=== PATIENT | female | born 2000 | race Caucasian/White ===

== ENCOUNTER 2020-05-11 13:13 | Emergency (ER) | payer BC, OTHER ==
[2020-05-11] MEDS ORDERED: ACETAMINOPHEN 325 MG TABLET ONE (14:04)
--- NOTE | 2020-05-11 14:43 | RAD REPORT ---
EXAM DESCRIPTION: Navid Single View05/11/2020 2:09 pm CLINICAL HISTORY: cough COMPARISON: none FINDINGS: The lungs appear clear of acute infiltrate. The heart is normal size IMPRESSION: No acute abnormalities displayed
--- NOTE | 2020-05-11 14:59 | EDPHYS ---
Physician Documentation [facility] Name: Gabriela Cervantes Age: 19 yrs Sex: Female : 2000 Arrival Date: 05/11/2020 Time: 13:16 Bed 23 Private MD: ED Physician Jimmy Amaya HPI: 05/11 13:47 This 19 yrs old Female presents to ER via Ambulatory with complaints of rn Breathing Difficulty, R/O COVID. 13:47 The patient has shortness of breath at rest, with light activity. Onset: The rn symptoms/episode began/occurred yesterday. Duration: The symptoms are intermittent. The patient's shortness of breath is aggravated by exertion, light activity. Severity of symptoms: At their worst the symptoms were mild in the emergency department the symptoms are unchanged. The patient has not experienced similar symptoms in the past. The patient has not recently seen a physician. Reports works at [employer], + possible exposure to COVID, present for fever/headache/cough/diarrhea/loss of taste and smell. No chronic lung problems, no smoking history. Reports feels sob but when asked to describe it she reports just "feels heavy" when trying to take deep breath. . 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 - Social history:: Smoking status: Patient denies any tobacco usage or history of. - Family history:: not pertinent. - Hospitalizations: : No recent hospitalization is reported. ROS: 13:47 Constitutional: Negative for fever, chills, and weight loss, Eyes: Negative for injury, rn pain, redness, and discharge, Neck: Negative for injury, pain, and swelling, Cardiovascular: Negative for chest pain, palpitations, and edema, Respiratory: Negative for wheezing, and pleuritic chest pain, Abdomen/GI: Negative for abdominal pain, vomiting, and constipation, Back: Negative for injury and pain, : Negative for injury, bleeding, discharge, and swelling, MS/Extremity: Negative for injury and deformity, Skin: Negative for injury, rash, and discoloration, Neuro: Negative for numbness, tingling, and seizure. Exam: 13:47 Constitutional: This is a well developed, well nourished patient who is awake, alert, rn and in no acute distress. Ambulatory to room without difficulty or assistance. Head/Face: Normocephalic, atraumatic. Cardiovascular: Regular rate and rhythm. No pulse deficits. Respiratory: Speaking full sentences. No increased work of breathing, no retractions or nasal flaring. Abdomen/GI: soft, non-tender Skin: Warm, dry MS/ Extremity: Pulses equal, no cyanosis. Neurovascular intact. Full, normal range of motion. Equal circumference. Neuro: Awake and alert, GCS 15 Vital Signs: 13:34 BP 123 / 96; Pulse 98; Resp 16 S; Temp 100.0(TE); Pulse Ox 100% on R/A; Weight 97.52 iw kg; Height 5 ft. 3 in. (160.02 cm); Pain 6/10; 13:34 Body Mass Index 38.09 (97.52 kg, 160.02 cm) iw MDM: 13:39 Patient medically screened. rn 14:57 Differential diagnosis: Bronchitis pneumonia, COVID, viral syndrome. Data reviewed: rn vital signs, nurses notes, lab test result(s), radiologic studies, plain films, and as a result, I will discharge patient. Counseling: I had a detailed discussion with the patient and/or guardian regarding: the historical points, exam findings, and any diagnostic results supporting the discharge/admit diagnosis, lab results, radiology results, the need for outpatient follow up, to return to the emergency department if symptoms worsen or persist or if there are any questions or concerns that arise at home. Special discussion: I discussed with the patient/guardian in detail that at this point there is no indication for admission to the hospital. It is understood, however, that if the symptoms persist or worsen the patient needs to return immediately for re-evaluation. Based on the history and exam findings, there is no indication for further emergent testing or inpatient evaluation. I discussed with the patient/guardian the need to see the primary care provider for further evaluation of the symptoms. ED course: CXR neg, no oxygen requirement, flu neg, will dc home with prn inhaler, decadron given here, will isolate and wait for results. . 05/11 13:45 Order name: Flu; Complete Time: 14:50 rn 05/11 13:45 Order name: COVID-19 rn 05/11 13:45 Order name: XRAY Chest (1 view); Complete Time: 14:44 rn Administered Medications: 14:20 Drug: Tylenol 650 mg Route: PO; iw Disposition: 05/11/20 14:58 Discharged to Home. Impression: Cough, Viral syndrome. - Condition is Stable. - Discharge Instructions: Cough, Adult, COVID-19. - Prescriptions for Albuterol Sulfate 90 mcg/actuation - inhale 1-2 puff by INHALATION route every 4-6 hours; 1 Inhaler. - Work release form, Medication Reconciliation Form, Thank You Letter, Antibiotic Education, Prescription Opioid Use form. - Follow up: Private Physician; When: As needed; Reason: Recheck today's complaints, Re-evaluation by your physician. - Problem is new. - Symptoms have improved. Addendum: 05/14/2020 14:18 Co-signature as Attending Physician, Jimmy Amaya MD. r n 14:20 Addendum: Called and notified patient of positive COVID-19 result \\T\\ 1420, feels better, rn questions answered, told health department would be in contact for further recommendations and proof of positive test. . Signatures: Dispatcher [employer] Kathy Ramirez RN RN Jimmy Amaya MD MD clinical quality rn: (The following items were deleted from the chart) 05/11 15:58 14:58 05/11/2020 14:58 Discharged to Home. Impression: Cough; Viral syndrome. Condition iw is Stable. Forms are Medication Reconciliation Form, Thank You Letter, Antibiotic Education, Prescription Opioid Use. Follow up: Private Physician; When: As needed; Reason: Recheck today's complaints, Re-evaluation by your physician. Problem is new. Symptoms have improved. rn
--- NOTE | 2020-05-11 14:59 | ER ---
Nurse's Notes [facility] Name: Gabriela Cervantes Age: 19 yrs Sex: Female : 2000 Arrival Date: 05/11/2020 Time: 13:16 Bed 23 Private MD: Diagnosis: Cough;Viral syndrome Presentation: 05/11 13:34 Chief complaint: Patient states: difficulty breathing, fatigue, vomiting, diarrhea, iw cough, fever X 2 days, works at [employer]. Coronavirus screen: Surgical mask placed on patient. Patient moved to private room, placed in contact and droplet isolation with eye protection until further assessment. Patient reports a cough. Patient reports shortness of breath or difficulty breathing. Patient reports a measured and/or subjective temperature greater than 100.4F. Patient reports travel on a cruise ship or to a country the [facility] currently lists as an affected area. Patient reports contact with known and/or suspected case of COVID-19. Ebola Screen: Patient negative for fever greater than or equal to 101.5 degrees Fahrenheit, and additional compatible Ebola Virus Disease symptoms Patient denies exposure to infectious person. Patient denies travel to an Ebola-affected area in the 21 days before illness onset. No symptoms or risks identified at this time. Initial Sepsis Screen: Does the patient meet any 2 criteria? No. Patient's initial sepsis screen is negative. Does the patient have a suspected source of infection? No. Patient's initial sepsis screen is negative. Risk Assessment: Do you want to hurt yourself or someone else? Patient reports no desire to harm self or others. Onset of symptoms was May 09, 2020. 13:34 Method Of Arrival: Ambulatory iw 13:34 Acuity: DILLAN 4 iw Triage Assessment: 14:30 General: Behavior is calm. Respiratory: Reports shortness of breath cough that is iw Onset: The symptoms/episode began/occurred yesterday, the patient has mild shortness of breath. 15:00 General: Appears in no apparent distress. 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 - Social history:: Smoking status: Patient denies any tobacco usage or history of. - Family history:: not pertinent. - Hospitalizations: : No recent hospitalization is reported. Screenin:58 Abuse screen: Denies threats or abuse. Denies injuries from another. Nutritional iw screening: No deficits noted. Tuberculosis screening: No symptoms or risk factors identified. Fall Risk None identified. Assessment: 14:10 General: Appears in no apparent distress. comfortable, Behavior is calm, cooperative. iw General: Reports fever for. Pain: Complains of pain in body aches. Neuro: Level of Consciousness is awake, alert, obeys commands, Oriented to person, place, time, situation, Moves all extremities. Full function. Cardiovascular: Rhythm is regular. Respiratory: Airway is patent Respiratory effort is even, unlabored, Breath sounds are clear bilaterally. Musculoskeletal: Range of motion: intact in all extremities. Vital Signs: 13:34 BP 123 / 96; Pulse 98; Resp 16 S; Temp 100.0(TE); Pulse Ox 100% on R/A; Weight 97.52 iw kg; Height 5 ft. 3 in. (160.02 cm); Pain 6/10; 13:34 Body Mass Index 38.09 (97.52 kg, 160.02 cm) iw ED Course: 13:16 Patient arrived in ED. ag5 13:36 Triage completed. iw 13:37 Kathy Molina RN is Primary Nurse. iw 13:37 Arm band placed on. iw 13:39 Jimmy Amaya MD is Attending Physician. rn 14:09 XRAY Chest (1 view) In Process Unspecified. EDMS 14:10 Patient has correct armband on for positive identification. iw 15:57 No provider procedures requiring assistance completed. Patient did not have IV access iw during this emergency room visit. Administered Medications: 14:20 Drug: Tylenol 650 mg Route: PO; iw Outcome: 14:58 Discharge ordered by . rn 15:57 Discharged to home ambulatory. iw 15:57 Condition: good 15:57 Discharge instructions given to patient, Instructed on discharge instructions, follow up and referral plans. Demonstrated understanding of instructions, follow-up care, Prescriptions given X 1. 15:58 Patient left the ED. iw Signatures: Dispatcher [employer] EDMS Jesse, Kathy, RN RN iw Amaya, Jimmy, MD MD rn Deloris, Ajare ag5 Corrections: (The following items were deleted from the chart) 19:59 15:57 Discharge instructions given to patient, Instructed on discharge instructions, iw follow up and referral plans. Demonstrated understanding of instructions, follow-up care, iw
[2020-05-11] MEDS ORDERED: dexAMETHasone 10 MG/ML VIAL ONE (15:40)
[2020-05-11 16:10] VITALS: BP 123/96; TEMP 100; O2SAT 100
== END 2020-05-11 15:58 | disposition home or self-care (01) ==
LOC: ER 13:13
DX: U07.1 COVID-19 (principal); B34.9 Viral infection, unspecified; R05 Cough
CPT/HCPCS: 87804 ×2; 71045; 99283; U0002; J1100